=== PATIENT | female | born 1995 | race African-American/Black ===

== ENCOUNTER 2016-08-12 08:23 | Emergency (ER) | payer OTHER ==
[~2016-08-12] VITALS: Ht 152.4 cm; Wt 79.4 kg
--- NOTE | ~2016-08-12 | EKG ---
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 08/12/16 0938 0930 0930 Antonino Sol MD, FACC /EPI
[~2016-08-12 08:23] MED LIST: BENADRYL25 MG PO; HYDROCODONE-AP1 EAC6 PO; NORCO 5-325 TA1 EACH PO
[2016-08-12 09:14] LABS: ABSOLUTE NEUTROPHILS 4.2 thou/uL (1.4-8.2); BASOPHILS 1.3 % (0.0-2.0); EOSINOPHILS 1.2 % (0.0-3.0); HEMATOCRIT 24.5 % (37.0-47.0); HEMOGLOBIN 8.5 gm/dL (12.0-15.0); LYMPHOCYTES 25.4 % (24.0-44.0); MCH 28.9 pg (26.0-34.0); MCHC 34.6 % (28.0-37.0); MCV 83.4 fL (80.0-100.0); MONOCYTES 4.7 % (1.0-8.0); PLATELET COUNT 138 thou/uL (150-400); POLYS 67.4 % (36.0-66.0); RBC 2.93 mil/uL (4.20-5.00); RDW 19.4 % (10.5-14.5); WBC 6.2 thou/uL (4.0-11.0)
[2016-08-12 09:15] LABS: MANUAL DIFF NO
[2016-08-12 09:34] LABS: CALCIUM 7.7 mg/dL (8.5-10.1); CREATININE 12.4 mg/dL (0.6-1.3); POTASSIUM 4.9 mmol/L (3.5-5.1)
[2016-08-12 09:39] LABS: ALBUMIN 3.3 g/dL (3.4-5.0); TOTAL BILIRUBIN 0.4 mg/dL (<0.1-1.0); TOTAL PROTEIN 6.7 g/dL (6.4-8.2)
[2016-08-12] MEDS ORDERED: PHENERGAN 25 MG25 M1 PO (10:18)
[2016-08-12] MEDS ORDERED: REMERON15 MG PO (10:18)
[2016-08-12] MEDS ORDERED: NORCO 5-325 TA1 EACH PO (10:18)
[2016-08-12] MEDS ORDERED: DIPHENHIST25 MG PO (10:30)
[2016-08-12 10:50] VITALS: BP 182/98
== END 2016-08-12 10:52 | disposition home or self-care (01) ==
LOC: ER 08:23
PROVIDERS: Emergency Medicine
DX: R10.2 Pelvic and perineal pain (principal); N18.6 End stage renal disease; Z99.2 Dependence on renal dialysis; E87.79 Other fluid overload; Q61.3 Polycystic kidney, unspecified; Z91.041 Radiographic dye allergy status; Z88.6 Allergy status to analgesic agent; Z91.048 Other nonmedicinal substance allergy status; F17.210 Nicotine dependence, cigarettes, uncomplicated